=== PATIENT | female | born 1945 | race Caucasian/White ===

== ENCOUNTER 2023-05-26 08:11 | Emergency (ER) | payer MEDICARE, BC, SELFPAY ==
--- NOTE | ~2023-05-26 | XR_ITS ---
EXAMINATION: XR shoulder LT min 2V DATE: 05/26/2023 08:39 INDICATION: Left shoulder pain. TECHNIQUE: 4 views of left shoulder were obtained. COMPARISON: None. FINDINGS: Bone alignment is normal. There is a nondisplaced fracture of proximal humerus with involve ment of the greater tuberosity and surgical neck. The glenohumeral joint is normal. There is severe a cromioclavicular joint osteoarthritis. IMPRESSION: 1. Comminuted one-part fracture of proximal left humerus. 2. Severe osteoarthritis of the acromioclavicular joint. Reviewed, dictated and finalized at location A.
--- NOTE | 2023-05-26 08:24 | ED.FALL ---
HPI - Fall General Chief Complaint: Fall Stated Complaint: FALL L SHOULDER INJURY Time Seen by Provider: 05/26/23 08:18 History of Present Illness HPI Narrative: Pt caught foot on step and fell landing on left elbow/upper arm. Pt says she felt pop in her shoulder and now has trouble raising it. Pt lives in [place] and has no PCP here. Related Data Allergies Allergy/AdvReac Type Severity Reaction Status Date / Time No Known Allergies Allergy Verified 05/26/23 08:25 Review of Systems Review of Systems: All systems reviewed & are unremarkable except as noted in HPI and below Exam Const: General: healthy appearing Nutritional Appearance: well nourished Orientation/consciousness: patient oriented x3 Limitations: no limitations HENMT: Head: normal to inspection Resp: Effort & Inspection: normal respiratory effort Cardio: Rate: regular rate Rhythm: regular rhythm Skin: General skin exam: normal color Wounds: no wounds Neuro: General: patient oriented x3, moves all extremities and no focal motor deficits Speech: normal speech Extrem: General: no clubbing, cyanosis or edema Other: tender proximal humerus. Pt not able to abduct left arm due to pain. Psych: Mental Status: mental status grossly normal Affect: normal affect Attitude: cooperative Course Vital Signs Vital signs: Vital Signs Temperature 98.5 F 05/26/23 08:32 Pulse Rate 66 05/26/23 08:32 Respiratory Rate 16 05/26/23 08:32 Blood Pressure 133/66 05/26/23 08:32 Pulse Oximetry 99 05/26/23 08:32 Oxygen Delivery Room Air 05/26/23 08:32 Temperature 98.1 F 05/26/23 09:48 Pulse Rate 72 05/26/23 09:48 Respiratory Rate 16 05/26/23 09:48 Blood Pressure 138/71 05/26/23 09:48 Pulse Oximetry 99 05/26/23 09:48 Oxygen Delivery Room Air 05/26/23 08:32 MDM - Fall MDM Narrative Medical decision making narrative: will get x ray and give pain meds. pt requests MRI here due to her not being home for awhile. will ask but told her it is not likely. Pt has proximal humerus fx. will sling and prescribe for pain control and pt will follow up with ortho in [place] when home next week. Discharge Plan Discharge Clinical Impression: Fracture of proximal end of left humerus Patient Disposition: Home, Self-Care Condition: Stable Instructions: Antibiotic Form, Proximal Humerus Fracture (ED) Prescriptions: New hydrocodone-acetaminophen 5-325 mg tablet 1 tablet PO Q6H PRN (Reason: pain) Qty: 10 0RF Follow-up/Referrals: PHYSICIAN NOT ON STAFF,NONSTAFF [Primary Care Provider] -
[2023-05-26] MEDS: KETOROLAC 30 MG/ML VIAL (*BKC) IM (08:29)
[2023-05-26 08:32] VITALS: BP 133/66; PULSE 66; RESP 16; TEMP 36.9; O2SAT 99
[2023-05-26 09:48] VITALS: BP 138/71; PULSE 72; RESP 16; TEMP 36.7; O2SAT 99
== END 2023-05-26 09:50 | disposition home or self-care (01) ==
PROVIDERS: Emergency Provider Emergency Medicine
DX: S42.255A Nondisplaced fracture of greater tuberosity of left humerus, initial encounter for closed fracture (principal); S42.215A Unspecified nondisplaced fracture of surgical neck of left humerus, initial encounter for closed fracture; M19.012 Primary osteoarthritis, left shoulder; W10.9XXA Fall (on) (from) unspecified stairs and steps, initial encounter
CPT/HCPCS: 73030; 96372; 99284; A4565; J1885